=== PATIENT | female | born 1965 | race Asian ===

== ENCOUNTER → 2016-12-10 | Outpatient (CLI) | payer OTHER ==
[~2016-12-10] MED LIST: FENTANYL PF 100 MCG/2ML ONE; MIDAZOLAM 1 MG/ML, 2ML ONE; None at this Time
== END ==
LOC: STAR 08:54
PROVIDERS: ATTEND Specialist
DX: Z02.9 Encounter for administrative examinations, unspecified (principal)

== ENCOUNTER 2016-12-15 06:25 | Day surgery (SDC) | payer OTHER ==
[2016-12-10 11:00] VITALS: BP 134/89
[~2016-12-15] VITALS: Ht 157.5 cm; Wt 44.8 kg
[~2016-12-15 06:25] MED LIST changes: -FENTANYL PF 100 MCG/2ML ONE; -MIDAZOLAM 1 MG/ML, 2ML ONE
[2016-12-15] MEDS ORDERED: BUPIVACAINE/PF 0.25% ONE (07:01)
[2016-12-15] MEDS ORDERED: EPINEPHRINE 1 MG/ML, 1ML ONE (07:01)
[2016-12-15] MEDS ORDERED: LACTATED RINGERS 1,000 ML IV SCH (07:15)
[2016-12-15] MEDS ORDERED: LIDOCAINE 1%, 2ML SQ PRN (07:30)
[2016-12-15] MEDS ORDERED: ONDANSETRON 2MG/ML, 2ML ONE (08:23)
[2016-12-15] MEDS ORDERED: DEXAMETHASONE 4 MG/ML, 1ML ONE (08:23)
[2016-12-15] MEDS ORDERED: KETOROLAC 30 MG/1 ML ONE (08:23)
[2016-12-15] MEDS ORDERED: PROPOFOL 10 MG/ML, 20ML ONE (08:23)
[2016-12-15] MEDS ORDERED: ACETAMINOPHEN 325 MG TABLET PO PRN (08:30)
[2016-12-15] MEDS ORDERED: hydrALAzine 20 MG/ML, 1ML IV PRN (08:30)
[2016-12-15] MEDS ORDERED: METOCLOPRAMIDE 5 MG/ML, 2ML IV PRN (08:30)
[2016-12-15] MEDS ORDERED: LABETALOL 5MG/ML, 20ML IV PRN (08:30)
[2016-12-15] MEDS ORDERED: PROMETHAZINE 25 MG/ML, 1ML IV PRN (08:30)
[2016-12-15] MEDS ORDERED: FENTANYL PF 100 MCG/2ML IV PRN (08:30)
[2016-12-15] MEDS ORDERED: HYDROmorphone 1 MG/ML, 1ML IV PRN (08:30)
[2016-12-15] MEDS ORDERED: ONDANSETRON 2MG/ML, 2ML IVPush PRN (08:30)
[2016-12-15] MEDS ORDERED: OXYcodone 5 MG/5 ML ORAL.SOL UDC PO PRN (08:30)
[2016-12-15] MEDS ORDERED: MEPERIDINE/PF 25MG/0.5ML IVPush PRN (08:30)
== END 2016-12-15 11:10 ==
LOC: OUT 06:25
PROVIDERS: ATTEND Specialist
DX: N75.0 Cyst of Bartholin's gland (principal)
CPT/HCPCS: 56440; J0171; J1100; J1885; J2250; J2405; J2704; J3010; J3490; J7120

== ENCOUNTER → 2017-11-11 | Outpatient (CLI) | payer OTHER | END | disposition home or self-care (01) | LOC: CFH 09:21 | PROVIDERS: ATTEND Specialist | DX: Z12.31 Encounter for screening mammogram for malignant neoplasm of breast (principal) | CPT/HCPCS: 77067 ==

== ENCOUNTER → 2018-01-10 | Outpatient (CLI) | payer OTHER | END | disposition home or self-care (01) | LOC: STAR 07:52 | PROVIDERS: ATTEND Surgery | DX: Z02.9 Encounter for administrative examinations, unspecified (principal) ==

== ENCOUNTER 2018-11-28 11:36 | Outpatient (CLI) | payer OTHER | END 2018-11-28 23:59 | disposition home or self-care (01) | LOC: CFH 11:36 → EDSTATUS 12:30 → CFH 23:59 | PROVIDERS: ATTEND Specialist | DX: Z12.31 Encounter for screening mammogram for malignant neoplasm of breast (principal) | CPT/HCPCS: 77067 ==

== ENCOUNTER 2021-01-13 12:24 | Outpatient (CLI) | payer OTHER | END 2021-01-13 23:59 | disposition home or self-care (01) | LOC: CFH 12:24 | PROVIDERS: ATTEND Specialist | DX: Z12.31 Encounter for screening mammogram for malignant neoplasm of breast (principal) | CPT/HCPCS: 77063; 77067 ==